=== PATIENT | female | born 1955 | race Two or more races ===

== ENCOUNTER 2022-05-28 11:15 | Inpatient (IN) | payer OTHER ==
[~2022-05-28] VITALS: Ht 152.4 cm; Wt 63.5 kg
[2022-05-28] MEDS ORDERED: COZAAR25 MG PO (14:42)
== END 2022-06-01 12:45 | disposition home or self-care (01) | DRG 741 ==
LOC: O/R 05-30 06:06 → OB/GYN 05-30 11:15
PROVIDERS: ADMIT Obstetrics & Gynecology Gynecologic Oncology; ATTEND Obstetrics & Gynecology Gynecologic Oncology
PROC: 0UT70ZZ Resection of Bilateral Fallopian Tubes, Open Approach (ICD-10-PCS; 2022-05-30)
PROC: 0UT20ZZ Resection of Bilateral Ovaries, Open Approach (ICD-10-PCS; 2022-05-30)
PROC: 07BC0ZZ Excision of Pelvis Lymphatic, Open Approach (ICD-10-PCS; 2022-05-30)
PROC: 0DBU0ZZ Excision of Omentum, Open Approach (ICD-10-PCS; 2022-05-30)
PROC: 07BD0ZZ Excision of Aortic Lymphatic, Open Approach (ICD-10-PCS; 2022-05-30)
PROC: 0UT90ZZ Resection of Uterus, Open Approach (ICD-10-PCS; principal; 2022-05-30 13:00)
DX: C54.1 Malignant neoplasm of endometrium (principal); N84.0 Polyp of corpus uteri